=== PATIENT | male | born 1955 | race Asian ===

== ENCOUNTER 2022-06-19 12:48 | Outpatient (CLI) | payer OTHER | END 2022-06-19 12:49 | disposition home or self-care (01) | LOC: LAB 12:48 | PROVIDERS: ATTEND Otolaryngology | DX: H90.3 Sensorineural hearing loss, bilateral (principal); H93.299 Other abnormal auditory perceptions, unspecified ear ==

== ENCOUNTER 2022-06-19 12:49 | Outpatient (CLI) | payer OTHER ==
[~2022-06-19 12:49] MED LIST: GADOBUTROL 10 MMOL/10 ML VIAL ONE
[2022-06-19] MEDS ORDERED: GADOBUTROL 10 MMOL/10 ML VIAL IVP ONE (15:18)
--- NOTE | 2022-06-19 17:17 | MRI Report ---
PROCEDURE: IAC'S W/WO INDICATIONS: HEARING LOSS CONTRAST: GADAVIST 8.6 ML TECHNIQUE: Noncontrast sagittal T1 spin echo, axial FLAIR, axial gradient echo, axial diffusion and ADC through the brain. Axial thin-slice 3D CISS, coronal balanced GE, axial T1 spin echo with fat saturation thr ough the internal auditory canals. After the administration of contrast, thin slice axial and mosquera l T1 spin echo with fat saturation through the internal auditory canals, and axial T1 spin echo with fat saturation through the brain. COMPARISON: None. FINDINGS: Image quality: Excellent. No cerebellopontine angle masses. Visualized cranial nerves demonstrate no areas of abnormal enhancem ent, signal or mass lesion. The ventricular system and cortical sulci demonstrate atrophy, consistent for patient's stated age. There are areas of hyperintense T2/FLAIR signal in the periventricular and subcortical white matter. There is no acute intra or extra-axial fluid collection. No acute hemorrhage, mass lesion or midlin e shift. Brainstem is unremarkable. There are no areas of restricted diffusion. There is a focus of hypointense gradient signal within the right cerebellum measuring 2 mm possibly a small angioma. Stefanie bes are symmetrical. Sinuses are aerated. Mild fluid is present within the right mastoid air cells. O sseous structures are intact. IMPRESSION: 1. No acute intracranial process. 2. Mild atrophy and chronic microvascular ischemic changes. 3. No visualized mass within the cerebellopontine angles. No areas of abnormal enhancement, signal o r mass lesion within the visualized cranial nerves. 4. Mild fluid within the left mastoid air cells. Recommend correlation of potential mastoiditis. Reviewed by: Maris Belle MD on 06/19/2022 5:16 PM PST Approved by: Maris Belle MD on 06/19/2022 5:16 PM PST Station ID: [id number]
== END 2022-06-19 12:50 | disposition home or self-care (01) ==
LOC: DI 12:49
PROVIDERS: ATTEND Otolaryngology
DX: H90.3 Sensorineural hearing loss, bilateral (principal); H93.299 Other abnormal auditory perceptions, unspecified ear; G31.89 Other specified degenerative diseases of nervous system; I67.82 Cerebral ischemia
CPT/HCPCS: 36415; 70553; 82565; A9585